=== PATIENT | female | born 1995 | race Caucasian/White ===

== ENCOUNTER → 2025-05-03 16:56 | Outpatient (REF) | payer OTHER, SELFPAY | LOC: RAD 16:56 | PROVIDERS: ATTENDING PHYSICIAN Obstetrics & Gynecology | DX: O36.80X1 Pregnancy with inconclusive fetal viability, fetus 1 (principal) | CPT/HCPCS: 76801; 76817 ==

== ENCOUNTER → 2025-05-24 15:21 | Outpatient (REF) | payer OTHER, SELFPAY | LOC: RAD 15:21 | PROVIDERS: ATTENDING PHYSICIAN Student in an Organized Health Care Education/Training Program | DX: O20.9 Hemorrhage in early pregnancy, unspecified (principal) | CPT/HCPCS: 76801 ==

== ENCOUNTER 2025-06-17 16:32 | Emergency (ER) | payer OTHER, SELFPAY ==
[2025-06-17 16:37] VITALS: BP 126/85
[2025-06-17 17:07] LABS: Hematocrit 42.5 % (37.0-47.0); Hemoglobin 14.5 g/dL (12.0-16.0); Mean Corp Hgb Conc. 34.1 g/dL (33.0-37.0); Mean Corpuscular Volume 88.0 fL (81.0-99.0); Nucleated Red Blood Cells % 0 %; Platelet Count 228 10^3/uL (130-400); Red Cell Dist. Width 13.1 % (11.5-14.5)
[2025-06-17 17:20] LABS: ALT (SGPT) 19 U/L (0-35); AST (SGOT) 19 U/L (14-36); Albumin 4.5 g/dl (3.5-5.0); Alkaline Phosphatase 57 U/L (38-126); Blood Urea Nitrogen 4 mg/dl (7-17); Calcium 9.0 mg/dl (8.4-10.2); Carbon Dioxide 23 mmol/L (22-30); Chloride 105 mmol/L (98-107); Glucose 94 mg/dl (70-99); Potassium 3.7 mmol/L (3.5-5.1); Sodium 136 mmol/L (135-145); Total Protein 7.5 g/dl (6.3-8.2); eGFR > 60.00
[2025-06-17 18:00] LABS: Beta HCG Quantitative 92548.00 mIU/ml
--- NOTE | 2025-06-17 21:02 | ED.GENMED ---
History of Present Illness
General
Chief Complaint: Problems
Time Seen by Provider: 06/17/25 20:50
History of Present Illness
History of Present Illness:
30-year-old female, currently 12 weeks gestational age, presents to the emergency department for evaluation of intractable vomiting and diarrhea throughout the course of the day today. Unable to tolerate any p.o. fluids. One of her children has
been ill with similar symptoms recently. She denies any abdominal pain or vaginal bleeding.
Review of Systems
Review of Systems
Allergies reviewed?: Yes
All Other Systems: ROS reviewed and negative except as documented in HPI and ROS
Phy Exam
Physical Exam
Physical Exam:
GEN: Well appearing, NAD, WDWN
HEENT: Oral mucosa moist, no scleral icterus
Cardiac: Regular rate
Lung: No respiratory distress, no tachypnea
MSK: No gross deformity or injuries
Skin: Good color, no pallor or jaundice, no rashes
Neuro: AO x3, moves all extremities freely
Psych: Calm, cooperative
Course
Orders/Labs/Results
Orders:
Orders
06/17/25 16:50
Beta HCG Quantitative Urgent
Is this a screen?: No
Comment: need quant pls
Complete Blood Count/With Diff Urgent
Comprehensive Metabolic Panel Urgent
Lipase Urgent
Comment: ADD ON
06/17/25 21:01
Metoclopramide [Reglan] 10 mg IV NOW STA
06/17/25 21:02
Dextrose 5%/0.45%Sodchl 1000ML [D5/0.45%NaCl] 1,000 ml IV 1,000 mls/hr
06/17/25 21:19
Add On- LAB Urgent
Tests Added?: lipase
06/17/25 21:42
Famotidine [Pepcid] 20 mg IV NOW STA
06/17/25 22:52
0.9% Sodium Chloride 500 ml [Nss] 500 ml IV BOLUS
06/17/25 23:10
Urinalysis Reflex To Culture Urgent
Date Specimen was Collected: 06/17/25
Time Specimen was Collected: 23:09
Urine Microscopic Reflex Cult Urgent
06/17/25 23:21
Ondansetron Injectable [Zofran] 4 mg IV NOW STA
Abnormal Lab Results
06/17/25 06/17/25
16:50 23:10
WBC 15.7 H 10^3/uL
(4.8-10.8)
Abs Immat Gran (auto) 0.1 H 10^3/uL
(0-0.05)
Absolute Neuts (auto) 14.5 H 10^3/uL
(1.4-6.5)
Absolute Lymphs (auto) 0.6 L 10^3/uL
(1.2-3.4)
Neutrophils % 91.9 H %
(42.2-75.2)
Lymphocytes % 3.6 L %
(20.5-51.1)
BUN 4 L mg/dl
(7-17)
Creatinine 0.4 L mg/dL
(0.6-1.0)
Urine Ketones 3+ A
(Negative)
Urine Bacteria (Reflex) Few A
(Negative)
Urine Glucose 4+ A
(Negative)
Urine Albumin (Reflex) 1+ A
(Neg - Trace)
06/17/25 16:50
06/17/25 16:50
Vital Signs
Initial and Last Documented VS:
Initial Vital Signs
Temp Pulse Resp BP Pulse Ox
98.5 F 108 18 126/85 98
06/17/25 16:37 06/17/25 16:37 06/17/25 16:37 06/17/25 16:37 06/17/25 16:37
Last Documented Vital Signs
Temp Pulse Resp BP Pulse Ox
99.9 F 109 18 121/77 97
06/17/25 21:42 06/17/25 23:09 06/17/25 16:37 06/17/25 23:08 06/17/25 22:56
Information
Weeks gestation: Weeks: (12)
Location: N/A
MDM/Problems Addressed
MDM/Problems Addressed:
Suspect self-limited viral syndrome however foodborne illness is considered as well. She has no abdominal pain warranting imaging, leukocytosis is most likely a stress response compounded by hypovolemia. Given IV fluids in the emergency department
and antiemetics. She does have a prescription for metoclopramide to use at home should she experience any worsening symptoms. I have also written orders for her to obtain outpatient stool studies should she be symptomatic for longer than 3 to 5
days given that she is .
*Pulse Oximetry
SaO2: 98
Oxygen Mode of Delivery: Room air
Patient hypoxic: no
*Critical Care Note
Total Time (30-74mins, 75-104mins- exclusive of procedures): Not Applicable
ED Attending Note
-
Portions of this chart may have been created with voice recognition software.� Occasional wrong word or��sound alike� substitutions may have occurred due to the inherent limitations of voice recognition software.
Discharge Plan
Departure
Patient Disposition: Home (Routine Discharge)
Date of Disposition: 06/17/25
Time of Disposition: 23:26
Patient with high blood pressure during this ER visit?: No
Discharge Problem:
Gastroenteritis
Instructions: Viral gastroenteritis in adults
Prescriptions:
No Action
vit-iron fum-folic ac 1 EACH tablet
1 ea PO DAILY
cetirizine [Zyrtec] 10 mg Tablet
10 mg PO DAILY
famotidine [Pepcid] 20 mg Tablet
20 mg PO BID
ibuprofen 600 mg Tablet
600 mg PO Q6HPRN PRN (Reason: moderate pain/cramps) Qty: 45 0RF
acetaminophen 325 mg Tablet
650 mg PO Q4HPRN PRN (Reason: mild pain) Qty: 0 0RF
Referrals:
NONE,* [Family Provider, Internal Medicine]
Activity Restrictions/Additional Instructions:
Use your Reglan as needed
Push fluids
If you are still symptomatic in 3 days, collect a stool specimen and return it to the outpatient lab at the hospital (M-F 6:30am-5:30pm, Sat 7am-noon) or at [facility] in [place] (M-F 6am-2pm)
If you develop severe abdominal pain or inability to tolerate oral liquids at home, return to the Emergency Department
Interventions
Interventions:
*Risk Screen - Suicide Last Done: 06/17/25 16:37
*General Assessment Last Done: 06/17/25 16:37
*Neglect/Abuse Screening Last Done: 06/17/25 21:08
*ED- Fall Risk Assessment Last Done: 06/17/25 16:37
*ED COVID-19 Vaccine History Last Done: 06/17/25 16:37
ED-Female Genitourinary Assessment Last Done: 06/17/25 21:43
Discharge Date and Time
Print Language: ITALIAN
[2025-06-17 21:03] VITALS: BP 134/68
[2025-06-17 21:04] VITALS: BMI 30.5
[2025-06-17] MEDS: REGLAN 10 MG IV (21:19)
[2025-06-17] MEDS: D5/0.45%NACL 1000 IV (21:19)
[2025-06-17 21:26] VITALS: BP 129/73
[2025-06-17 21:51] LABS: Lipase 50 U/L (23-300)
[2025-06-17] MEDS: PEPCID 20 MG IV (21:58)
[2025-06-17 22:00] VITALS: BP 102/53
[2025-06-17 22:50] VITALS: BP 112/67
[2025-06-17] MEDS: NSS 500 IV (22:58)
[2025-06-17 23:08] VITALS: BP 121/77
[2025-06-17 23:16] LABS: Urine Character Clear (Clear)
[2025-06-17 23:25] LABS: Urine Squamous Cell >30 /LPF (Few)
[2025-06-17 23:27] LABS: Urine Red Blood Cell None Seen /HPF (0-2)
[2025-06-17] MEDS: ZOFRAN 4 MG IV (23:28)
[2025-06-18] VITALS: BP 108/73
[2025-06-18 01:00] VITALS: BP 122/68
== END 2025-06-18 01:15 | disposition home or self-care (01) ==
LOC: EMR 16:32
PROVIDERS: Physician Assistant; EMERGENCY PHYSICIAN Emergency Medicine
DX: O99.891 Other specified diseases and conditions complicating pregnancy (principal); K52.9 Noninfective gastroenteritis and colitis, unspecified; Z3A.12 12 weeks gestation of pregnancy
CPT/HCPCS: 99283; 96374; 96375; 96361; 80053; 81003; 81015; 83690; 84702; 85025

== ENCOUNTER → 2025-06-20 09:53 | Outpatient (REF) | payer OTHER, SELFPAY | LOC: PNTC 09:53 | PROVIDERS: ATTENDING PHYSICIAN Obstetrics & Gynecology | DX: Z36.0 Encounter for antenatal screening for chromosomal anomalies (principal); Z36.82 Encounter for antenatal screening for nuchal translucency; O99.211 Obesity complicating pregnancy, first trimester | CPT/HCPCS: 76801; 76813 ==